=== PATIENT | female | born 1970 | race Caucasian/White ===

== ENCOUNTER → 2016-07-12 | Outpatient (CLI) | payer BC ==
[~2016-07-12] MED LIST: FAMO-119 PO; ONDA8TAB13 PO; SUCR1ORA5 PO
--- OUTSIDE RECORDS SUMMARY | 2016-07-12 09:31 | XMS REPORT ---
Author Author AUGUSTO QUESADA Organization [employer] Address Unknown Phone Unavailable Care Team Providers Care Channel Program Manager Name Role Phone AUGUSTO QUESADA CP Unavailable Allergies, Adverse Reactions, Alerts Substance Reaction Event Type N.K.D.A. Info Not Available Non Drug Allergy Problems Problem Type Condition Code Onset Dates Condition Status Problem Anhedonia R45.84 Active Problem Hyperglycemia R73.9 Active Problem Mixed hyperlipidemia E78.2 Active Assessment Mixed hyperlipidemia E78.2 Active Assessment Encounter for immunization Z23 Active Problem Sleep apnea in adult G47.33 Active Assessment Anhedonia R45.84 Active Medications Medication Code System Code Instructions Start Date End Date Status Dosage Claritin [facility] [place] [address]-25 10 MG Once a day September 14, 2011 1 time per day Prozac [facility] [place] [address]-86 20 mg 1 CAPSULE IN THE MORNING ONCE A DAY ORALLY Oxybutynin Chloride [facility] [place] [address]-71 5 mg Orally Once a day 1 tablet Procedures Procedure Coding System Code Date SINGLE IMMUNIZATION ADMIN CPT-4 21196 Mar 24, 2016 Office Visit, Est Pt., Level 3 CPT-4 57369 Mar 24, 2016 FLUARIX QUAD P-FREE 3 AND UP .50 2015 CPT-4 74844 Mar 24, 2016 Vital Signs Date/Time: Mar 24, 2016 Cardiac Monitoring Heart Rate 94 bpm Weight 203.6 lbs Height 67.5 in BMI 31.41 Index Blood Pressure Diastolic 80 mmHg Blood Pressure Systolic 118 mmHg Results No Known Results Immunizations Vaccine Administration Date FLUARIX QUAD P-FREE 3 AND UP .50 2015Mar 24, 2016 Summary Purpose [employer] Submission
--- NOTE | 2016-07-12 15:16 | Diagnostic Imaging Report ---
Digital mammogram bilateral screening. This study was compared to the prior exam of 09/26/2011. At this time, there are no current complaints. The current study was also evaluated with a Computer Aided Detection (CAD) system. FINDINGS: The fibroglandular tissue in both breasts is heterogeneously dense. This does limit the sensitivity of this exam. As on the prior exam, there are a number of microcalcifications scattered throughout both breasts. These microcalcifications may be somewhat more numerous than on the prior exam but still have a generally benign appearance. There is no primary or secondary sign of malignancy noted. IMPRESSION: 1. There is no evidence of malignancy. 2. The patient should have her annual bilateral screening mammogram on schedule in June 2017. ACR BI-RADS Category 1: Negative. Result letter will be mailed to the patient. Note: At least 10% of breast cancer is not imaged by mammography. Dictated by: Dictated on workstation # [id number]
== END ==
LOC: RAD 09:29
PROVIDERS: ATTEND Nurse Practitioner Family
DX: Z12.31 Encounter for screening mammogram for malignant neoplasm of breast (principal)

== ENCOUNTER 2016-08-12 11:58 | Emergency (ER) | payer BC ==
[~2016-08-12] VITALS: Ht 165.1 cm; Wt 81.6 kg
[2016-08-12 12:24] LABS: BILIRUBIN,URINE NEGATIVE (NEGATIVE); KETONES,URINE NEGATIVE (NEGATIVE); LEUKOCYTE ESTERASE ,URINE NEGATIVE (NEGATIVE); NITRITE,URINE NEGATIVE (NEGATIVE); PH,URINE 7 (5-9); PROTEIN,URINE 1+ (NEGATIVE); UROBILINOGEN,URINE NORMAL (NORMAL)
[2016-08-12] MEDS ORDERED: FAMOTIDINE 20MG/2ML IV (PEPCID) IV STA (12:34)
[2016-08-12 12:39] LABS: WBC,URINE 0-2 /HPF
--- NOTE | 2016-08-12 12:39 | ED Abdominal Pain ---
General Chief Complaint: Abdominal/GI Problems Stated Complaint: ABD PAIN Nursing Triage Note: c/o upper abd pain. Onset 0800. Nausea reported. Had episoded of dry heaves. Sepsis Screen: No Definite Risk Source of Information: Patient Exam Limitations: No Limitations History of Present Illness Time Seen By Provider: 12:39 Initial Comments 45-year-old female patient presents to the emergency department with complaints of upper abdominal pain with greatest tenderness in the epigastrium. Reports onset at 0800 today. Does complain of nausea and dry heaves. Has had several episodes of dry heaves throughout the day. Patient and family report patient has had several episodes of heartburn and dyspepsia over the last couple of weeks. Denies hematemesis. Timing/Duration: Constant, Other (0800 this AM) Severity/Quality: Cramping Location: Epigastric Radiation: RUQ, LUQ Activities at Onset: None Modifying Factors: Worsens With Eating Allergies and Home Medications Allergies Coded Allergies: No Known Drug Allergies (Unverified , 08/12/16) Home Medications Famotidine 20 Mg Tablet #30 20 MG PO BID Prescribed by: LOVE NORWOOD on 08/12/161516 Ondansetron 8 Mg Tab.rapdis #10 8 MG PO Q6H PRN PRN NAUSEA Prescribed by: LOVE NORWOOD on 08/12/161516 Sucralfate 1 Gm/10 Ml Oral.susp #560 1 GM PO ACHS Prescribed by: LOVE NORWOOD on 08/12/161516 Review of Systems Constitutional: No chills, No fever, malaise other (fatigue) EENTM: No Symptoms Reported Respiratory: Denies Cough, Denies Shortness of Air Cardiovascular: Denies Chest Pain, Denies Lightheadedness, Denies Syncope Gastrointestinal: See HPIDenies Abdomen Distended, Abdominal Pain ( epigastric and BUQ)Denies Blood Streaked Stools, Denies Diarrhea, Denies Difficulty Swallowing, Nausea Poor Appetite Poor Fluid IntakeDenies Vomiting, Other (heartburn) Genitourinary: Denies Burning, Denies Discharge, Denies Frequency, Denies Flank Pain, Denies Hematuria, Denies Pain Musculoskeletal: no symptoms reported Skin: no symptoms reported Psychiatric/Neurological: No Symptoms Reported All Other Systems Reviewed Negative Unless Noted: Yes (Negative excepted noted.) Past Ummohss-Pteogv-Zlsklj Hx Patient Social History Alcohol Use: Denies Use Recreational Drug Use: No Smoking Status: Never a Smoker Recent Foreign Travel: No Contact w/Someone Who Travel: No Recent Infectious Disease Expo: No Recent Hopitalizations: No Surgeries HX Surgeries: No Respiratory Hx Respiratory Disorders: No Cardiovascular Hx Cardiac Disorders: No Neurological Hx Neurological Disorders: No Reproductive System : No Hx Reproductive Disorders: No Genitourinary Hx Genitourinary Disorders: No Gastrointestinal Hx Gastrointestinal Disorders: No Musculoskeletal Hx Musculoskeletal Disorders: No Endocrine Hx Endocrine Disorders: No HEENT HX ENT Disorders: No Cancer Hx Cancer: No Psychosocial Hx Psychiatric Problems: No Integumentary HX Skin/Integumentary Disorder: No Blood Transfusions Hx Blood Disorders: No Reviewed Nursing Assessment Reviewed/Agree w Nursing PMH: Yes Family Medical History Significant Family History: No Pertinent Family Hx Physical Exam Vital Signs VS - Last 72 Hours, by Label 08/12/16 08/12/16 08/12/16 12:17 14:35 16:00 Temp 98.2 98.2 98.2 Pulse 83 78 Resp 16 16 B/P 164/114 Pulse Ox 98 98 O2 Delivery Room Air Capillary Refill : Less Than 3 Seconds General Appearance: WD/WN no apparent distress HEENT: PERRL/EOMI pharynx normal Neck: supple normal inspection Respiratory: lungs clear normal breath sounds no respiratory distress Cardiovascular: normal peripheral pulses regular rate, rhythm no murmur Gastrointestinal: normal bowel sounds soft no organomegalyNo distended, guarding (epigastric and right upper quadrant with positive Shay sign.)No rebound, tenderness (bilateral upper quadrant and epigastric tenderness) Back: normal inspection no CVA tenderness Neurologic/Psychiatric: alert normal mood/affect oriented x 3 Skin: normal color warm/dry Progress/Results/Core Measures Results/Orders Lab Results Laboratory Tests Test 08/12/16 12:15 08/12/16 13:00 Range/Units Urine Bacteria NEGATIVE /HPF Urine Bilirubin NEGATIVE NEGATIVE Urine Casts NONE /LPF Urine Clarity CLEAR Urine Color YELLOW Urine Crystals NONE /LPF Urine Culture Indicated NO Urine Glucose (UA) 1+ H NEGATIVE Urine Ketones NEGATIVE NEGATIVE Urine Leukocyte Esterase NEGATIVE NEGATIVE Urine Mucus NEGATIVE /LPF Urine Nitrite NEGATIVE NEGATIVE Urine Protein 1+ H NEGATIVE Urine RBC NONE /HPF Urine RBC (Auto) 1+ H NEGATIVE Urine Specific [place] 1.010 L 1.016-1.022 Urine Squamous Epithelial Cells 2-5 /HPF Urine Urobilinogen NORMAL NORMAL MG/DL Urine WBC 0-2 /HPF Urine pH 7 5-9 Alanine Aminotransferase (ALT/SGPT) 32 0-55 U/L Albumin 4.0 3.2-4.5 G/DL Alkaline Phosphatase 82 40-136 U/L Anion Gap 10 5-14 MMOL/L Aspartate Amino Transf (AST/SGOT) 25 5-34 U/L BUN/Creatinine Ratio 18 Basophils # (Auto) 0.0 0.0-0.1 10^3/uL Basophils (%) (Auto) 0 0-10 % Blood Urea Nitrogen 14 7-18 MG/DL Calcium Level 9.0 8.5-10.1 MG/DL Carbon Dioxide Level 22 21-32 MMOL/L Chloride Level 102 98-107 MMOL/L Creatinine 0.77 0.60-1.30 MG/DL Eosinophils # (Auto) 0.1 0.0-0.3 10^3/uL Eosinophils (%) (Auto) 1 0-10 % Estimat Glomerular Filtration Rate > 60 Glucose Level 127 H 70-105 MG/DL Hematocrit 38 35-52 % Hemoglobin 13.3 11.5-16.0 G/DL Lipase 17 8-78 U/L Lymphocytes # (Auto) 1.8 1.0-4.0 X 10^3 Lymphocytes (%) (Auto) 18 12-44 % Mean Corpuscular Hemoglobin 30 25-34 PG Mean Corpuscular Hemoglobin Concent 35 32-36 G/DL Mean Corpuscular Volume 86 80-99 FL Mean Platelet Volume 10.1 7.4-10.4 FL Monocytes # (Auto) 0.4 0.0-1.0 X 10^3 Monocytes (%) (Auto) 4 0-12 % Neutrophils # (Auto) 7.6 1.8-7.8 X 10^3 Neutrophils (%) (Auto) 77 H 42-75 % Platelet Count 282 130-400 10^3/uL Potassium Level 4.4 3.6-5.0 MMOL/L Red Blood Count 4.45 4.35-5.85 10^6/uL Red Cell Distribution Width 12.8 10.0-14.5 % Sodium Level 134 L 135-145 MMOL/L Total Bilirubin 0.5 0.1-1.0 MG/DL Total Protein 7.0 6.4-8.2 G/DL White Blood Count 9.9 4.3-11.0 10^3/uL My Orders Orders-LOVE NORWOOD Cbc With Automated Diff (08/12/16 12:34) Comprehensive Metabolic Panel (08/12/16 12:34) Lipase (08/12/16 12:34) Saline Lock/Iv-Start (08/12/16 12:34) Ondansetron Injection (Zofran Injectio (08/12/16 12:45) Lidocaine 2% Viscous 15 Ml (Xylocaine Vi (08/12/16 12:45) Antacid Suspension (Mylanta Suspension (08/12/16 12:45) Famotidine Injection (Pepcid Injection) (08/12/16 12:34) Ns Iv 1000 Ml (Sodium Chloride 0.9%) (08/12/16 13:10) Ns Iv 1000 Ml (Sodium Chloride 0.9%) (08/12/16 13:15) Us Gallbladder 00238 (08/12/16 13:35) Fentanyl Injection (Sublimaze Injection (08/12/16 13:35) Ondansetron Injection (Zofran Injectio (08/12/16 14:45) Promethazine Injection (Phenergan Injec (08/12/16 15:21) Medications Given in ED Current Medications Medications Dose Ordered Sig/Emi Route Start Time Stop Time Status Last Admin Dose Admin Al Hydrox/Mg Hydrox/Simethicone 30 ml ONCE ONCE PO 08/12/16 12:45 08/12/16 12:46 DC 08/12/16 12:51 30 ML Lidocaine HCl 15 ml ONCE ONCE PO 08/12/16 12:45 08/12/16 12:46 DC 08/12/16 12:50 15 ML Ondansetron HCl 4 mg ONCE ONCE IVP 08/12/16 12:45 08/12/16 12:46 DC 08/12/16 12:51 4 MG Ondansetron HCl 8 mg ONCE ONCE IVP 08/12/16 14:45 08/12/16 14:46 DC 08/12/16 14:55 8 MG Vital Signs/I&O Vital Sign - Last 12Hours 08/12/16 08/12/16 08/12/16 12:17 14:35 16:00 Temp 98.2 98.2 98.2 Pulse 83 78 Resp 16 16 B/P 164/114 Pulse Ox 98 98 O2 Delivery Room Air Blood Pressure Mean: 131 Diagnostic Imaging Diagonstic Imaging: Ultrasound Plain Films/CT/US/NM/MRI: other (gallbladder) Comments FINDINGS: There is increased echogenicity of the liver. Long axis of the liver measures 19 cm. No evidence of intrahepatic biliary dilatation. Common bile duct measures 4 mm. Gallbladder appears normal. Gallbladder wall measures 2 mm. No gallstones. Pancreas is not visualized due to central bowel gas. Right kidney appears normal. The portal and hepatic vein are patent. IMPRESSION: Normal right upper quadrant ultrasound. Dictated on workstation # [id number] Reviewed: Reviewed by Me (radiology report reviewed by me.) Departure Communication Progress Notes All laboratory and diagnostic findings were discussed with the patient and family are present in the room at the time of visit. Patient reports then noted increased nausea. Patient was given 1 repeat doses Zofran without improvement and nausea. Phenergan 25 mg IV 1 dose today improved symptoms. Proceed with discharge to home. All return precautions were discussed with the patient and family. All voiced understanding and agree with the treatment plan. Impression Impression: Primary Impression: Abdominal pain Qualified Code: R10.10 - Upper abdominal pain, unspecified Additional Impression: Gastritis Qualified Code: K29.00 - Acute gastritis without bleeding Disposition: HOME, SELF-CARE Condition: Improved Departure-Patient Inst. Decision time for Depature: 15:14 Referrals: CEE QUINTANILLA MD [facility], [facility] (PCP) Primary Care Physician Patient Instructions: Acute Abdomen (Belly Pain), Adult (DC), Gastritis (DC), Ulcer and Gastritis Diet Add. Discharge Instructions: All discharge instructions reviewed with patient and/or family. Voiced understanding. medications as instructed. Tylenol [id number] as directed for pain if needed. Avoid use of ibuprofen, Aleve, and aspirin. No caffeinated beverages, carbonated beverages, smoking, secondhand smoke, alcohol, eating within 2 hours of lying down.follow-up with a family practitioner for recheck and possible need of upper endoscopy as an outpatient, call for appointment time. Return to the emergency department for worsened symptoms or any other concerns. Scripts Sucralfate (Carafate)1 Gm/10 Ml Oral.susp1 Gm PO ACHS #560 ML Ref 0 Prov:LOVE NORWOOD 08/12/16 Ondansetron (Ondansetron Odt)8 Mg Tab.rapdis8 Mg PO Q6H PRN NAUSEA #10 TAB Ref 0 Prov:LOVE NORWOOD 08/12/16 Famotidine (Pepcid)20 Mg Lihcim84 Mg PO BID #30 TAB Ref 0 Prov:LOVE NORWOOD 08/12/16 LOVE NORWOOD Aug 12, 2016 12:39
[2016-08-12] MEDS ORDERED: LIDOCAINE 2% VISCOUS 15 ML UDC PO ONE (12:45)
[2016-08-12] MEDS ORDERED: ONDANSETRON 4 MG/2 ML (SDV) Z0FRAN IVP ONE ×2 (12:45→14:45)
[2016-08-12] MEDS ORDERED: ANTACID SUSP 30 ML UDC (MYLANTA) PO ONE (12:45)
[2016-08-12] MEDS ORDERED: NS IV 1000 ML 1,000 ML ONE (13:10)
[2016-08-12] MEDS ORDERED: NS IV 1000 ML 1,000 ML IV SCH (13:15)
[2016-08-12 13:17] LABS: BASOPHILS % (AUTO) 0 % (0-10); EOSINOPHILS # (AUTO) 0.1 10^3/uL (0.0-0.3); EOSINOPHILS % (AUTO) 1 % (0-10); LYMPHOCYTES # (AUTO) 1.8 X 10^3 (1.0-4.0); LYMPHOCYTES % (AUTO) 18 % (12-44); MEAN CORPUSCULAR HEMOGLOBIN 30 PG (25-34); MEAN CORPUSCULAR HGB CONC 35 G/DL (32-36); MEAN CORPUSCULAR VOLUME 86 FL (80-99); MEAN PLATELET VOLUME 10.1 FL (7.4-10.4); MONOCYTES # (AUTO) 0.4 X 10^3 (0.0-1.0); MONOCYTES % (AUTO) 4 % (0-12); NEUTROPHILS # (AUTO) 7.6 X 10^3 (1.8-7.8); NEUTROPHILS % (AUTO) 77 % (42-75); PLATELET COUNT 282 10^3/uL (130-400); RED BLOOD COUNT 4.45 10^6/uL (4.35-5.85); RED CELL DISTRIBUTION WIDTH 12.8 % (10.0-14.5); WHITE BLOOD COUNT 9.9 10^3/uL (4.3-11.0)
[2016-08-12 13:32] LABS: ALANINE AMINOTRANSFERASE 32 U/L (0-55); ANION GAP 10 MMOL/L (5-14); ASPARTATE AMINO TRANSFERASE 25 U/L (5-34); BILIRUBIN,TOTAL 0.5 MG/DL (0.1-1.0); BLOOD UREA NITROGEN 14 MG/DL (7-18); BUN/CREATININE RATIO 18; CARBON DIOXIDE 22 MMOL/L (21-32); CHLORIDE 102 MMOL/L (98-107); CREATININE SERUM 0.77 MG/DL (0.60-1.30); GFR ESTIMATED > 60; GLUCOSE 127 MG/DL (70-105); LIPASE 17 U/L (8-78); POTASSIUM 4.4 MMOL/L (3.6-5.0); SODIUM 134 MMOL/L (135-145)
[2016-08-12] MEDS ORDERED: fentaNYL INJECTION 100 MCG/2 ML AMP IVP STA (13:35)
--- NOTE | 2016-08-12 15:10 | Diagnostic Imaging Report ---
PROCEDURE: US Gallbladder. TECHNIQUE: Multiple real-time grayscale images were obtained over the right upper quadrant in various projections. INDICATION: Abdominal pain. FINDINGS: There is increased echogenicity of the liver. Long axis of the liver measures 19 cm. No evidence of intrahepatic biliary dilatation. Common bile duct measures 4 mm. Gallbladder appears normal. Gallbladder wall measures 2 mm. No gallstones. Pancreas is not visualized due to central bowel gas. Right kidney appears normal. The portal and hepatic vein are patent. IMPRESSION: Normal right upper quadrant ultrasound. Dictated by: Dictated on workstation # [id number]
[2016-08-12] MEDS ORDERED: FAMO-119 PO (15:17)
[2016-08-12] MEDS ORDERED: SUCR1ORA5 PO (15:17)
[2016-08-12] MEDS ORDERED: ONDA8TAB13 PO (15:17)
[2016-08-12] MEDS ORDERED: PROMETHAZINE INJ 25 MG/ML (PHENERGAN) AMP IVP STA (15:21)
[2016-08-12 16:00] VITALS: BP 152/90
== END 2016-08-12 14:00 | disposition home or self-care (01) ==
LOC: EDUNIT# 11:58 → ER 12:02
DX: K29.00 Acute gastritis without bleeding (principal); R11.0 Nausea
CPT/HCPCS: 36415; 76705; 80053; 81000; 83690; 85025; 96361; 96374; 96375; 96376